=== PATIENT | female | born 1980 | race Caucasian/White ===

== ENCOUNTER → 2023-06-26 | Outpatient (CLI) | payer OTHER ==
[2023-06-26 13:13] LABS: INR < 0.93 (0.85-1.15); PROTHROMBIN TIME 10.5 SEC (9.6-11.6)
[2023-06-26 13:15] LABS: PARTIAL THROMBOPLASTIN TIME 26.4 SEC (26.3-35.5)
== END | disposition home or self-care (01) ==
LOC: LAB 11:34
PROVIDERS: ATTEND Internal Medicine
DX: E04.2 Nontoxic multinodular goiter (principal)
CPT/HCPCS: 36415; 85610; 85730

== ENCOUNTER → 2023-07-04 | Outpatient (CLI) | payer OTHER | LOC: RAH 07:35 | PROVIDERS: ATTEND Internal Medicine | DX: E04.1 Nontoxic single thyroid nodule (principal); I10 Essential (primary) hypertension; E66.9 Obesity, unspecified; Z79.899 Other long term (current) drug therapy; Z88.0 Allergy status to penicillin; Z68.31 Body mass index [BMI] 31.0-31.9, adult | CPT/HCPCS: 10005; 76942; 88112; 88173; 88305 ==